=== PATIENT | male | born 1940 | race Caucasian/White ===

== ENCOUNTER → 2016-11-01 | Outpatient (CLI) | payer OTHER | END | disposition home or self-care (01) | LOC: RAD 07:26 | PROVIDERS: ATTEND Neurological Surgery | DX: M48.06 Spinal stenosis, lumbar region (principal); M51.36 Other intervertebral disc degeneration, lumbar region; M43.25 Fusion of spine, thoracolumbar region; M40.294 Other kyphosis, thoracic region; M43.15 Spondylolisthesis, thoracolumbar region | CPT/HCPCS: 72082 ==